=== PATIENT | male | born 1990 | race Caucasian/White ===

== ENCOUNTER 2024-01-16 18:15 | Emergency (ER) | payer MEDICAID ==
[~2024-01-16] VITALS: Ht 182.9 cm; Wt 65.8 kg
[2024-01-16] MEDS ORDERED: IBUPROFEN 600 MG TABLET ONE (19:04)
[2024-01-16] MEDS: IBUPROFEN 600 MG TABLET PO ONE (19:13)
[2024-01-16] MEDS ORDERED: NEOMY/BACITRAC/POLYMI OINT 28.35 GM TUBE ONE (20:10)
[2024-01-16] MEDS ORDERED: CYCL5TAB PO (20:15)
[2024-01-16] MEDS ORDERED: NAPR-1009 PO (20:15)
[2024-01-16] MEDS: NEOMY/BACITRA/POLYMYXIN B OINT UD PACKET TP ONE (20:40)
[2024-01-16 20:41] VITALS: BP 128/78; TEMP 97.2; O2SAT 100
== END 2024-01-16 20:43 | disposition home or self-care (01) ==
LOC: ER 18:20
DX: S06.0X0A Concussion without loss of consciousness, initial encounter (principal); S80.02XA Contusion of left knee, initial encounter; M54.2 Cervicalgia; Z79.899 Other long term (current) drug therapy; V89.2XXA Person injured in unspecified motor-vehicle accident, traffic, initial encounter; Y93.89 Activity, other specified; Y92.410 Unspecified street and highway as the place of occurrence of the external cause; Y99.8 Other external cause status
CPT/HCPCS: 72050; 73560; A4606; A4663